=== PATIENT | male | born 1995 | race Two or more races ===

== ENCOUNTER 2021-07-20 12:07 | Emergency (ER) | payer MEDICAID, SELFPAY ==
[2021-07-20 12:21] VITALS: BP 125/78; PULSE 73; RESP 16; TEMP 37; O2SAT 100; BMI 19.3
[2021-07-20] MEDS: Tetracaine HCl/PF 0.5% Oph Sol 4 ML DROPS 2 DROP EYE-BOTH (14:30)
[2021-07-20] MEDS: Fluorescein Sodium STRIP 1 STRIP EYE-BOTH (14:30)
[2021-07-20] MEDS: Erythromycin Base 0.5% Oph Oin 1 GM TUBE 1 CM EYE-BOTH (14:44)
--- NOTE | 2021-07-20 14:55 | ED_ITS ---
HPI - Eye Problem General Chief complaint: Eye Problems Stated complaint: eye swelling Time Seen by Provider: 07/20/21 14:10 Source: patient Mode of arrival: ambulatory Limitations: language barrier (Tunisian-speaking) History of Present Illness chief complaint: eye redness, vision change and foreign body Onset (ago): day(s) (Two days) Onset description: gradual Duration: constant and progressively worsening Location: left eye Eye Symptoms: burning, redness, foreign body sensation, itching, discharge, decreased vision and blurry vision Place: home Mechanism: none Severity: mild If Pain, Quality: burning Associated symptoms: none Treatments Prior to Arrival: none Related Data Patient tetanus UTD: Yes Previous Rx's Medication Instructions Recorded cephalexin 500 mg capsule 500 mg PO Q6H 10 Days #40 cap 07/20/21 doxycycline monohydrate 100 mg 100 mg PO BID 10 Days #20 cap 07/20/21 capsule erythromycin 5 mg/gram (0.5 %) eye 0.5 inch OPHTHALMIC (EYE) QID 7 07/20/21 ointment Days #3.5 g Allergies Allergy/AdvReac Type Severity Reaction Status Date / Time No Known Allergies Allergy Verified 07/20/21 14:12 Review of Systems Review of Systems: Constitutional : No fevers, no chills, No changes in activity, No lethargy, No recent prior head injury, No agitation, No increased fussiness ENT/Mouth : No Ear Pain, No Nasal discharge/drainage Eyes: + Vision changes/blurry/decreased vision, positive foreign body sensation/redness to the eye/itching, No Eye Pain, No Swelling, No Photophobia, no discharge, no eyelid edema, no contact lens uses, no recent welding, no bleeding Cardiovascular : No Chest Pain, No SOB Respiratory : No Cough Gastrointestinal : No Nausea, No Vomiting, No abdominal Pain Genitourinary : No Dysuria, No Urinary Frequency, No Urinary Incontinence, No Urgency, No Flank Pain Musculoskeletal : No joint pain, No neck stiffness, No back pain/injury Skin : No lacerations Neuro : No unsteady gait, No Paresthesias, No Loss of Consciousness, No altered mental status, No dizziness, No Headache Denies past medical history of HIV, recent trauma, coagulopathy, recent spinal/ epidural procedure, new medication, URI symptoms, close contacts with similar symptoms, tick bite, or known CO2 exposure. Yes all other systems are reviewed and are negative [facility] Past Medical History Attestation statement: The following information was validated with the patient. Social History Social History Advance Directives: No Advance Directives Information Provided: No Physical Exam Vital Signs: Vital Signs: Last Vital Signs Temp 98.6 F 07/20/21 12:21 Pulse 73 07/20/21 12:21 Resp 16 07/20/21 12:21 BP 125/78 07/20/21 12:21 Pulse Ox 100 07/20/21 12:21 Body Mass Index 19.3 vital signs have been reviewed as normal and appeared to be correct. Blood pressure normal. Heart rate normal. Respiration rate normal. Temperature normal. Oxygen saturation normal. Appearance: Alert. Oriented X3. No acute distress. Head: Normal external exam. Normocephalic. Atraumatic. No Ellsworth signs noted. No raccoon eyes noted Eyes: PERRLA. EOMI. Patient had a foreign body to left cornea and a superficial abrasion. I was able to remove the foreign body. No ulcerations or rust ring noted. The conjunctiva to the left eye is noted to be erythematous with watery drainage. No other fluorescein uptake noted. The right conjunctiva is within normal limits. Cornea are normal. Funduscopic exam within normal limits. Sclera to left eye erythematous to right eye normal. Eyelids normal. No papilledema noted. Anterior chamber normal. No photophobia noted. ENT: EAC normal. TM's Normal. Pharynx normal. Uvula midline. Moist mucous membranes. Neck: Normal inspection. Neck supple. FROM. No adenopathy. Thyroid Normal. No meningeal signs. No neck mass noted. CVS: Normal heart rate and rhythm. Heart sound normal. No murmurs noted. Pulses normal throughout. Respiratory: No respiratory distress. Painless inspiration. Breath sounds normal. Back: Full range of motion noted. Skin: Skin warm and dry. Normal skin color. Normal skin turgor. No rashes/lesions/lacerations noted. Extremities: No lower extremity edema. Extremities exhibit normal range of motion. Extremities nontender. Neuro: Oriented X 3. No motor deficit. No sensory deficit. Reflexes normal. Course Course Course Narrative: 25-year-old male who does not were contacts presented to the ED with complaints of left eye redness/pain/purulent discharge and blurry vision. He denies any recent welding or any other injuries. On exam patient is noted to have a foreign body that was easily removed and a superficial corneal abrasion no ulcerations are noted or any other fluorescein uptake. Patient reports his tetanus is up-to-date. I placed erythromycin. Will DC home with symptomatic treatment and erythromycin antibiotic ointment and referral to Dr. Mena the neighborhood planner along with instructions return if any new or worsening 7 follow-up with primary care provider. Patient understands agrees with this plan. Procedures FB Removal Eye Time Out performed: Yes Location: eye (L) Topical anesthetic used: tetracaine Foreign body: other Evidence of corneal penetration: No Technique: irrigation and cotton tip swab Procedure performed under: direct visualization with magnification Post-procedure medication: ophthalmic antibiotic and topical anesthetic Patient tolerated procedure: well and no complications Discharge Plan Discharge Clinical Impression: Corneal abrasion, Bacterial conjunctivitis, Foreign body in eye Patient Disposition: Home, Self-Care Instructions: Corneal Abrasion (ED), Eye Foreign Body (ED), Conjunctivitis (ED) Prescriptions: New cephalexin 500 mg capsule 500 mg PO Q6H 10 Days Qty: 40 RF: 0 doxycycline monohydrate 100 mg capsule 100 mg PO BID 10 Days Qty: 20 RF: 0 erythromycin 5 mg/gram (0.5 %) ointment 0.5 inch ophthalmic (eye) QID 7 Days Qty: 3.5 RF: 0 Referrals: Dre Mena [Physician] - 2 days Print Language: Tunisian
== END 2021-07-20 15:05 | disposition home or self-care (01) ==
PROVIDERS: Emergency Provider Emergency Medicine
DX: T15.02XA Foreign body in cornea, left eye, initial encounter (principal); X58.XXXA Exposure to other specified factors, initial encounter; Y93.9 Activity, unspecified; Y92.9 Unspecified place or not applicable; Y99.9 Unspecified external cause status
CPT/HCPCS: 99283; 99284